=== PATIENT | female | born 2000 | race Caucasian/White ===

== ENCOUNTER 2019-10-31 11:58 | Emergency (ER) | payer SELFPAY ==
--- NOTE | 2019-10-31 12:24 | ER Document Report ---
ED Medical Screen (RME) - General Chief Complaint: OB Problem (<20wks) Stated Complaint: HEADACHE/NAUSEA/LOWER ABDOMINAL/ Time Seen by Provider: 10/31/19 12:19 Primary Care Provider: JEB MARCOS MD [Primary Care Provider] - Follow up as needed Notes: HPI: 19-year-old female presenting to the emergency department complaining of pelvic pain and low back pain with some dizziness over the last few days. P tari has not had a menstrual cycle in 4 months and has had a positive test at home no vaginal bleeding. Denies vaginal discharge. Patient states she has felt an "fluttering" sensation in the mid abdomen and is concerned she might be more than she believes. I have greeted and performed a rapid initial assessment of this patient. A comprehensive ED assessment and evaluation of the patient, analysis of test results and completion of the medical decision making process will be conducted by additional ED providers PHYSICAL EXAMINATION: GENERAL: Well-appearing, well-nourished and in no acute distress. HEAD: Atraumatic, normocephalic. EYES: sclera anicteric, conjunctiva are normal. ENT: Moist mucous membranes. NECK: Normal range of motion LUNGS: Normal work of breathing, clear to auscultation HEART: 2+ radial pulses bilaterally, regular rate and rhythm ABD: limited by positioning for exam in triage. Mild tenderness across the pelvis on palpation EXTREMITIES: no pitting or edema. No cyanosis. NEUROLOGICAL: No focal neurological deficits. Moves all extremities spontaneously and on command. PSYCH: Normal mood, normal affect. SKIN: Warm, Dry, normal turgor, no rashes or lesions noted. TRAVEL OUTSIDE OF THE [place] IN LAST 30 DAYS: No - Related Data Allergies/Adverse Reactions: No Known Allergies Allergy (Verified 05/25/14 15:56) Past Medical History Pulmonary Medical History: Reports: Hx Asthma Endocrine Medical History: Denies: Hx Diabetes Mellitus Type 1 Psychiatric Medical History: Reports: Hx Anxiety, Hx Attention Deficit Hyperactivity Disorder, Hx Bipolar Disorder, Hx Depression - Anxiety - Immunizations Immunizations up to date: Yes Hx Diphtheria, Pertussis, Tetanus Vaccination: Yes Physical Exam - Vital signs Vitals: Temp Pulse Resp BP Pulse Ox 97.8 F 74 18 130/77 H 100 10/31/19 12:06 10/31/19 12:06 10/31/19 12:06 10/31/19 12:06 10/31/19 12:06 Course - Vital Signs Vital signs: Temp Pulse Resp BP Pulse Ox 97.8 F 74 18 130/77 H 100 10/31/19 12:06 10/31/19 12:06 10/31/19 12:06 10/31/19 12:06 10/31/19 12:06 Doctor's Discharge - Discharge Referrals: JEB MARCOS MD [Primary Care Provider] - Follow up as needed
[2019-10-31 12:58] LABS: AMORPHOUS SEDIMENT,URINE TRACE /HPF; APPEARANCE,URINE CLOUDY; BILIRUBIN,URINE NEGATIVE (NEGATIVE); COLOR,URINE YELLOW; GLUCOSE, URINE NEGATIVE (NEGATIVE); KETONES,URINE NEGATIVE (NEGATIVE); LEUKOCYTE ESTERASE,URINE NEGATIVE (NEGATIVE); NITRITE,URINE NEGATIVE (NEGATIVE); PROTEIN,URINE NEGATIVE (NEGATIVE); UROBILINOGEN,URINE NEGATIVE mg/dL (<2.0)
--- NOTE | 2019-10-31 13:22 | RADIOLOGY REPORT (SQ) ---
EXAM DESCRIPTION: U/S OB TRANSVAG W/DOPPLER COMPLETED DATE/TIME: 10/31/2019 1:04 pm REASON FOR STUDY: pelvic pain COMPARISON: None. TECHNIQUE: Transabdominal static and realtime grayscale images acquired of the pelvis. Additional se lected spectral and color Doppler images recorded. All images stored on PACs. bHCG: None available CLINICAL DATES: Not available. LIMITATIONS: None. FINDINGS: FETUS: Single Living intrauterine . ULTRASOUND EGA: 14 weeks 5 days ULTRASOUND KEN: 04/25/2020 EFW: Not applicable less than 20 weeks. CRL: 7.5 cm FHR: 147 beats per minute. SURVEY: No visualized anomalies. AMNIOTIC FLUID: Adequate amount. PLACENTA: Anterior SUBCHORIONIC BLEED: No. SIZE OF BLEED: Not applicable. UTERUS: No masses. No anomalies. CERVICAL LENGTH: 3.5 cm Closed. RIGHT ADNEXA: Not imaged. LEFT ADNEXA: Not imaged. FREE FLUID: None. OTHER: No other significant finding. IMPRESSION: Living intrauterine with estimated gestational age of 14 weeks and 5 days Trimester of : Second trimester - 13 weeks 1 day to 27 weeks 6 days. TECHNICAL DOCUMENTATION: JOB ID: [id number] 2010 [employer]- All Rights Reserved rev-01/18 Reading location - IP/workstation name: [email or web address]
[2019-10-31 13:26] LABS: ABSOLUTE LYMPHOCYTES (AUTO) 2.3 10^3/uL (0.5-4.7); ABSOLUTE MONOCYTES (AUTO) 0.6 10^3/uL (0.1-1.4); ABSOLUTE NEUT (AUTO) 7.6 10^3/uL (1.7-8.2); BASOPHILS % (AUTO) 0.4 % (0-2); EOSINOPHILS % (AUTO) 0.4 % (0-6); HEMATOCRIT 33.7 % (36.0-47.0); LYMPHOCYTES % (AUTO) 21.7 % (13-45); MEAN CORPUSCULAR HGB CONC 35.5 g/dL (32.0-36.0); MEAN CORPUSCULAR VOLUME 93 fl (80-97); MONOCYTES % (AUTO) 5.5 % (3-13); PLATELET COUNT 401 10^3/uL (150-450); RED BLOOD COUNT 3.63 10^6/uL (3.72-5.28); RED CELL DISTRIBUTION WIDTH 15.2 % (11.5-14.0); TOTAL CELLS COUNTED % (AUTO) 100 %; WHITE BLOOD COUNT 10.6 10^3/uL (4.0-10.5)
[2019-10-31 13:50] LABS: ALBUMIN 3.9 g/dL (3.5-5.0); ALKALINE PHOSPHATASE 47 U/L (38-126); ANION GAP 10 (5-19); ASPARTATE AMINO TRANSFERASE 16 U/L (14-36); BILIRUBIN,DIRECT 0.2 mg/dL (0.0-0.4); BILIRUBIN,TOTAL 0.5 mg/dL (0.2-1.3); BLOOD UREA NITROGEN 8 mg/dL (7-20); CALCIUM 9.6 mg/dL (8.4-10.2); CARBON DIOXIDE 24 mmol/L (22-30); CHLORIDE 103 mmol/L (98-107); GLUCOSE 79 mg/dL (75-110); POTASSIUM 4.7 mmol/L (3.6-5.0); TOTAL PROTEIN 7.2 g/dL (6.3-8.2)
--- NOTE | 2019-10-31 15:47 | ER Document Report ---
ED General - General Chief Complaint: OB Problem (<20wks) Stated Complaint: HEADACHE/NAUSEA/LOWER ABDOMINAL/ Time Seen by Provider: 10/31/19 12:19 Primary Care Provider: JEB MARCOS MD [Primary Care Provider] - Follow up as needed Mode of Arrival: Ambulatory Information source: Patient Notes: 19-year-old female with history of anxiety bipolar depression and asthma presents to the emergency department with complaints of pelvic pain low back pain and feeling lightheaded for 1 week. She reports her last menstrual period was probably 4 months ago. She took a home test today, it was positive. Patient is G2, P1. She has not received any care. Patient reports she is sexually active with one person. Does not use any type of protection. Reports vaginal discharge but is normal for her. Denies pain with void. Denies fever or diarrhea but reports she vomits almost every day. Patient has bottled water that she has been sipping at the bedside. She reports she has had nothing to eat today. Denies abdominal pain. TRAVEL OUTSIDE OF THE [place] IN LAST 30 DAYS: No - HPI Onset: Other Onset/Duration: Persistent Quality of pain: Achy Associated symptoms: Vomiting Exacerbated by: Denies Relieved by: Denies Similar symptoms previously: No Recently seen / treated by doctor: No - Related Data Allergies/Adverse Reactions: No Known Allergies Allergy (Verified 05/25/14 15:56) Past Medical History - General Information source: Patient Last Menstrual Period: 4 months ago - Social History Smoking Status: Current Every Day Smoker Cigarette use (# per day): Yes Frequency of alcohol use: Occasional Drug Abuse: None Lives with: Family Family History: Reviewed & Not Pertinent Patient has suicidal ideation: No Patient has homicidal ideation: No Pulmonary Medical History: Reports: Hx Asthma Endocrine Medical History: Denies: Hx Diabetes Mellitus Type 1 Psychiatric Medical History: Reports: Hx Anxiety, Hx Attention Deficit Hyperactivity Disorder, Hx Bipolar Disorder, Hx Depression - Anxiety Past Surgical History: Reports: Hx Section - Immunizations Immunizations up to date: Yes Hx Diphtheria, Pertussis, Tetanus Vaccination: Yes Review of Systems - Review of Systems Notes: Review HPI for review of systems., All other systems negative Physical Exam - Vital signs Vitals: Temp Pulse Resp BP Pulse Ox 97.8 F 74 18 130/77 H 100 10/31/19 12:06 10/31/19 12:06 10/31/19 12:06 10/31/19 12:06 10/31/19 12:06 - Notes Notes: PHYSICAL EXAMINATION: GENERAL: Well-appearing and in no acute distress HEAD: Atraumatic, normocephalic. EYES: Pupils equal round, extraocular movements intact, sclera anicteric, conjunctiva are normal. ENT: nares patent, Moist mucous membranes. NECK: Normal range of motion, supple without lymphadenopathy LUNGS: CTAB and equal. No wheezes rales or rhonchi. HEART: Regular rate and rhythm without murmurs ABDOMEN: Soft, no tenderness. No guarding, no rebound BACK: Denies pain with palpation, good distal movement and sensation EXTREMITIES: Normal range of motion, no pitting edema. NEUROLOGICAL: Cranial nerves grossly intact. Normal sensory/motor exams. PSYCH: Normal mood, normal affect. SKIN: Warm, Dry, normal turgor, no rashes or lesions noted - Genitourinary External exam: Normal Speculum exam: Normal Vaginal bleeding: None Bimanuel exam: Normal Course - Re-evaluation Re-evalutation: 10/31/19 16:56 19-year-old female presents with positive home test. Reports last menstrual period was maybe 4 months ago. Patient reports some pelvic pain low back pain dizziness. Also complains she is vomiting on a daily basis. Denies fever or diarrhea. Denies pain with void. Patient reports there is no way she has an STD because she is only been with 1 partner. Pelvic completed STD cultures obtained. Patient was instructed on ultrasound. She reports that during her last delivery she went into cardiac arrest twice and had to do an emergency . She is not sure why. She also reports she has a history of severe anemia. Labs unremarkable UA negative, ultrasound shows 14 weeks 5 days due date of 04/25/2020 with heart rate of 147 beats. Patient was instructed on this. Wet mount negative STDs negative. Patient was instructed results. Instructed to follow-up with health department for care. She verbalized understanding to all information. Transvaginal US 10/31/19 12:22 IMPRESSION: Living intrauterine with estimated gestational age of 14 weeks and 5 days Trimester of : Second trimester - 13 weeks 1 day to 27 weeks 6 days. Laboratory 10/31/19 10/31/19 10/31/19 12:41 13:13 13:13 WBC 10.6 H RBC 3.63 L Hgb 12.0 Hct 33.7 L MCV 93 MCH 33.0 MCHC 35.5 RDW 15.2 H Plt Count 401 Lymph % (Auto) 21.7 Drew % (Auto) 5.5 Eos % (Auto) 0.4 Baso % (Auto) 0.4 Absolute Neuts (auto) 7.6 Absolute Lymphs (auto) 2.3 Absolute Monos (auto) 0.6 Absolute Eos (auto) 0.0 Absolute Basos (auto) 0.0 Seg Neutrophils % 72.0 Sodium 137.2 Potassium 4.7 Chloride 103 Carbon Dioxide 24 Anion Gap 10 BUN 8 Creatinine 0.36 L Est GFR ( Amer) > 60 Est GFR (MDRD) Non-Af > 60 Glucose 79 Calcium 9.6 Total Bilirubin 0.5 Direct Bilirubin 0.2 Neonat Total Bilirubin Not Reportable Neonat Direct Bilirubin Not Reportable Neonat Indirect Bili Not Reportable AST 16 ALT 10 Alkaline Phosphatase 47 Total Protein 7.2 Albumin 3.9 Beta HCG, Quant 18683.00 H Total Beta HCG POSITIVE Urine Color YELLOW Urine Appearance CLOUDY Urine pH 7.0 Ur Specific [place] 1.020 Urine Protein NEGATIVE Urine Glucose (UA) NEGATIVE Urine Ketones NEGATIVE Urine Blood NEGATIVE Urine Nitrite NEGATIVE Urine Bilirubin NEGATIVE Urine Urobilinogen NEGATIVE Ur Leukocyte Esterase NEGATIVE Urine WBC (Auto) 2 Urine Bacteria (Auto) TRACE Squamous Epi Cells Auto 6 Amorphous Sediment Auto TRACE Urine Mucus (Auto) MANY Urine Ascorbic Acid 20 H Blood Type Rhogam Indicated 10/31/19 15:44 WBC RBC Hgb Hct MCV MCH MCHC RDW Plt Count Lymph % (Auto) Drew % (Auto) Eos % (Auto) Baso % (Auto) Absolute Neuts (auto) Absolute Lymphs (auto) Absolute Monos (auto) Absolute Eos (auto) Absolute Basos (auto) Seg Neutrophils % Sodium Potassium Chloride Carbon Dioxide Anion Gap BUN Creatinine Est GFR ( Amer) Est GFR (MDRD) Non-Af Glucose Calcium Total Bilirubin Direct Bilirubin Neonat Total Bilirubin Neonat Direct Bilirubin Neonat Indirect Bili AST ALT Alkaline Phosphatase Total Protein Albumin Beta HCG, Quant Total Beta HCG Urine Color Urine Appearance Urine pH Ur Specific [place] Urine Protein Urine Glucose (UA) Urine Ketones Urine Blood Urine Nitrite Urine Bilirubin Urine Urobilinogen Ur Leukocyte Esterase Urine WBC (Auto) Urine Bacteria (Auto) Squamous Epi Cells Auto Amorphous Sediment Auto Urine Mucus (Auto) Urine Ascorbic Acid Blood Type A POSITIVE Rhogam Indicated RHOGAM NOT INDICATED 10/31/19 19:05 - Vital Signs Vital signs: Temp Pulse Resp BP Pulse Ox 98.4 F 88 17 116/64 100 10/31/19 17:00 10/31/19 17:00 10/31/19 17:00 10/31/19 17:00 10/31/19 17:00 - Laboratory Result Diagrams: 10/31/19 13:13 10/31/19 13:13 Laboratory results interpreted by me: 10/31/19 10/31/19 10/31/19 12:41 13:13 13:13 WBC 10.6 H RBC 3.63 L Hct 33.7 L RDW 15.2 H Creatinine 0.36 L Beta HCG, Quant 52784.00 H Urine Ascorbic Acid 20 H - Diagnostic Test Radiology reviewed: Reports reviewed Procedures - Pelvic Exam Pelvic exam Time completed: 16:55 Cultures obtained: Yes Wet prep obtained: Yes Herpes culture obtained: No POC sent to lab: No Foreign body removed: No Bimanual exam performed: Yes Witnessed by: Earnestine NICK Discharge - Discharge Clinical Impression: , Vomiting Condition: Stable Disposition: HOME, SELF-CARE Instructions: Antinausea Medication ([facility]), [facility] Department, ([facility]) Additional Instructions: *You have been evaluated for pelvic pain, vomiting, *The Ultrasound showed you are 14 weeks 5 days . With a heart rate of 147. Your estimated due date is April 25, 2020 *Your STD cultures are still pending. Should you need any type of treatment you will be contacted within the next 4 to 5 days. *Take medication as prescribed for nausea *Follow up with the health department within 1 week for full evaluation, care, and referral to [facility] *Return to ED for worsening condition, changes, needs, severe abdominal pain, vaginal bleeding, concerns Monitor your blood pressure. Your blood pressure was elevated today. This may be because you were anxious, in pain or because you need medication. It is important to follow up with your primary care provider for full evaluation. Prescriptions: Metoclopramide HCl [Reglan 10 mg Tablet] 1 tab PO ASDIR PRN #15 tablet PRN Reason: Forms: Elevated Blood Pressure Referrals: MARCOS,JEB, MD [Primary Care Provider] - Follow up as needed
[2019-10-31] MEDS ORDERED: METOCLOPRAMIDE HCL 10 MG TABLET PO ONE (16:50)
[2019-10-31 17:07] LABS: BACTERIA (WET MOUNT) 3+ BACTERIA SEEN; T.VAGINALIS (WET MOUNT) NO TRICHOMONAS SEEN; WBCS (WET MOUNT) 1+ WBCS SEEN; YEAST (WET MOUNT) NO YEAST SEEN
[2019-10-31 17:54] VITALS: BP 116/64
[2019-10-31 18:39] LABS: CHLAM PCR NOT DETECTED (NOT DETECT)
== END 2019-10-31 17:55 | disposition home or self-care (01) ==
LOC: ER 11:58
DX: O21.9 Vomiting of pregnancy, unspecified (principal); M54.5 Low back pain; R51 Headache; R10.30 Lower abdominal pain, unspecified; O99.332 Smoking (tobacco) complicating pregnancy, second trimester; Z3A.14 14 weeks gestation of pregnancy
CPT/HCPCS: 36415; 76817; 80053; 81001; 84702; 85025; 86900; 86901; 87070; 87205; 87210; 87491; 87591; 93976; 99284

== ENCOUNTER 2019-11-12 09:35 | Emergency (ER) | payer SELFPAY ==
[2019-11-12] MEDS ORDERED: DIPH/PERTUSS(ACELL)/TETANUS VAC/PF 0.5 ML SYR (>=10YO) IM ONE (09:58)
--- NOTE | 2019-11-12 10:01 | ER Document Report ---
ED Medical Screen (RME) - General Chief Complaint: Foot Injury Stated Complaint: RIGHT FOOT INJURY Time Seen by Provider: 11/12/19 09:56 Primary Care Provider: GABINO ZURITA CNM [Primary Care Provider] - Follow up as needed Mode of Arrival: Wheelchair Information source: Patient Notes: 19-year-old female approximately 4 months presents emergency department with approximately 3 to 4 cm with laceration to the medial plantar of her right foot. Reports she was walking barefoot outside and stepped on a piece of metal. She reports she had to pull it out of her foot. Unsure of last tetanus. Wound bleeding covered with dressing. I have greeted and performed a rapid initial assessment of this patient. A comprehensive ED assessment and evaluation of the patient, analysis of test results and completion of the medical decision making process will be conducted by additional ED providers. TRAVEL OUTSIDE OF THE [place] IN LAST 30 DAYS: No - Related Data Allergies/Adverse Reactions: No Known Allergies Allergy (Verified 11/12/19 09:45) Past Medical History Pulmonary Medical History: Reports: Hx Asthma Endocrine Medical History: Denies: Hx Diabetes Mellitus Type 1 Psychiatric Medical History: Reports: Hx Anxiety, Hx Attention Deficit Hyperactivity Disorder, Hx Bipolar Disorder, Hx Depression - Anxiety Past Surgical History: Reports: Hx Section - Immunizations Immunizations up to date: Yes Hx Diphtheria, Pertussis, Tetanus Vaccination: Yes Physical Exam - Vital signs Vitals: Temp Pulse Resp BP Pulse Ox 98.8 F 79 16 118/56 L 99 11/12/19 09:41 11/12/19 09:41 11/12/19 09:41 11/12/19 09:41 11/12/19 09:41 Course - Vital Signs Vital signs: Temp Pulse Resp BP Pulse Ox 98.8 F 79 16 118/56 L 99 11/12/19 09:41 11/12/19 09:41 11/12/19 09:41 11/12/19 09:41 11/12/19 09:41 Doctor's Discharge - Discharge Referrals: GABINO ZURITA CNM [Primary Care Provider] - Follow up as needed
--- NOTE | 2019-11-12 10:33 | RADIOLOGY REPORT (SQ) ---
EXAM DESCRIPTION: FOOT RIGHT COMPLETE COMPLETED DATE/TIME: 11/12/2019 10:23 am REASON FOR STUDY: laceration, stepped on metal COMPARISON: None. NUMBER OF VIEWS: Three views. TECHNIQUE: AP, lateral and oblique radiographic images acquired of the right foot. LIMITATIONS: None. FINDINGS: MINERALIZATION: Normal. BONES: No acute fracture or dislocation. No worrisome bone lesions. JOINTS: No effusions. SOFT TISSUES: No soft tissue swelling. No foreign body. OTHER: No other significant finding. IMPRESSION: NEGATIVE STUDY OF THE RIGHT FOOT. NO RADIOGRAPHIC EVIDENCE OF ACUTE INJURY. TECHNICAL DOCUMENTATION: JOB ID: [id number] 2010 [employer]- All Rights Reserved Reading location - IP/workstation name: [email or web address]
[2019-11-12] MEDS ORDERED: LIDOCAINE 1%/EPINEPHRINE INJ 20 ML VIAL INJ ONE (10:52)
--- NOTE | 2019-11-12 11:01 | ER Document Report ---
ED General - General Chief Complaint: Foot Injury Stated Complaint: RIGHT FOOT INJURY Time Seen by Provider: 11/12/19 09:56 Primary Care Provider: GABINO ZURITA CNM [Primary Care Provider] - Follow up as needed Mode of Arrival: Wheelchair TRAVEL OUTSIDE OF THE [place] IN LAST 30 DAYS: No - HPI Notes: Patient is a 19-year-old female who presents to the emergency department for evaluation after sustaining a laceration to her right foot. She was getting up in her house, believed she stepped on a piece of metal. She states she had pulled out of her foot. She is unsure as to her last tetanus shot. She notes she is 4 months . - Related Data Allergies/Adverse Reactions: No Known Allergies Allergy (Verified 11/12/19 09:45) Home Medications: vitamin Past Medical History - General Information source: Patient - Social History Smoking Status: Current Some Day Smoker Chew tobacco use (# tins/day): No Frequency of alcohol use: None Drug Abuse: None Family History: Reviewed & Not Pertinent Patient has suicidal ideation: No Patient has homicidal ideation: No Pulmonary Medical History: Reports: Hx Asthma Endocrine Medical History: Denies: Hx Diabetes Mellitus Type 1 Psychiatric Medical History: Reports: Hx Anxiety, Hx Attention Deficit Hyperactivity Disorder, Hx Bipolar Disorder, Hx Depression - Anxiety Past Surgical History: Reports: Hx Section - Immunizations Immunizations up to date: Yes Hx Diphtheria, Pertussis, Tetanus Vaccination: Yes Review of Systems - Review of Systems Skin: See HPI -: Yes All other systems reviewed and negative Physical Exam - Vital signs Vitals: Temp Pulse Resp BP Pulse Ox 98.8 F 79 16 118/56 L 99 11/12/19 09:41 11/12/19 09:41 11/12/19 09:41 11/12/19 09:41 11/12/19 09:41 - Notes Notes: This is a 19-year-old female who appears her stated age in no acute distress. Head is normocephalic and atraumatic, pupils are equal round, reactive to light. Oral mucosa is moist. Heart is regular rate and rhythm, lungs are clear to all station bilaterally. Examination of the right foot yields a 4 cm linear laceration over the medial aspect of the foot, plantar aspect. No foreign body. It does go into the subcutaneous tissue, but I do not appreciate any muscle involvement. Full range of motion of the toes, neurovascularly intact distally. Course - Re-evaluation Re-evalutation: 11/12/19 11:04 Patient presents emergency department for evaluation. She sustained a laceration which will require suture closure. Wound care set up ordered. 11/12/19 11:31 Patient tolerated wound closure well. Please see procedure note. She is given wound care instructions, instructions to have sutures removed in 7 to 10 days. She is given crutches as per her request to avoid weightbearing on this laceration. She is given a work excuse. She is to return to the ED with worsening. - Vital Signs Vital signs: Temp Pulse Resp BP Pulse Ox 98.3 F 78 16 116/66 100 11/12/19 11:48 11/12/19 11:48 11/12/19 11:48 11/12/19 11:48 11/12/19 11:48 - Diagnostic Test Radiology reviewed: Image reviewed, Reports reviewed Radiology results interpreted by me: 11/12/19 11:04 Foot X-Ray 11/12/19 09:58 IMPRESSION: NEGATIVE STUDY OF THE RIGHT FOOT. NO RADIOGRAPHIC EVIDENCE OF ACUTE INJURY. Procedures - Laceration/Wound Repair Right Foot Time completed: 11:20 Wound length (cm): 4 Wound's Depth, Shape: Superficial, Linear Laceration pre-procedure: Sterile PPE donned Anesthetic type: 1% Lidocaine w/epi Volume Anesthetic (mLs): 5 Wound explored: Clean, No foreign body removed Wound Repaired With: Sutures Suture Size/Type: 4:0, Prolene Number of Sutures: 7 Layer Closure?: No Post-procedure wound care: Sterile dressing applied Post-procedure NV exam normal: Yes Complications: No Discharge - Discharge Clinical Impression: Laceration of right foot Qualifiers: Encounter type: initial encounter Qualified Code(s): S91.311A - Laceration without foreign body, right foot, initial encounter Condition: Stable Disposition: HOME, SELF-CARE Instructions: Antibiotic Ointment Protection ([facility]), Laceration Care ([facility]), Soap Cleansing ([facility]), Tetanus Immunization Given ([facility]) Additional Instructions: Keep wound clean with soap and water, antibiotic ointment and dressing to protect. Avoid submerging in water. Use crutches as needed for comfort to aid with ambulation. Have sutures removed in 7 to 10 days. If you develop increased redness, drainage, fevers, vomiting, red streaks, or any other new or concerning symptoms, please return immediately to the emergency department for evaluation. Forms: Return to Work Referrals: GABINO ZURITA CNM [Primary Care Provider] - Follow up as needed
[2019-11-12 11:49] VITALS: BP 116/66
== END 2019-11-12 11:48 | disposition home or self-care (01) ==
LOC: ER 09:35
DX: S91.311A Laceration without foreign body, right foot, initial encounter (principal); W26.9XXA Contact with unspecified sharp object(s), initial encounter; F17.200 Nicotine dependence, unspecified, uncomplicated; Z23 Encounter for immunization
CPT/HCPCS: 99282; 90471; 73630; 90715; 12002; J3490

== ENCOUNTER 2019-11-20 13:23 | Emergency (ER) | payer MEDICAID ==
[2019-11-20 13:26] VITALS: BP 119/64
--- NOTE | 2019-11-20 13:34 | ER Document Report ---
HPI - HPI Time Seen by Provider: 11/20/19 13:26 Notes: 19-year-old female who is 4 months presents emergency room for wound check to a laceration to the medial aspect of her right foot after she was walking barefoot outside and stepped on metal, she received 7 simple sutures on November 11. Denies any fevers or chills, is not using crutches to ambulate. Has not done any warm soaks or elevation. No open wounds or drainage. Denies any fevers or chills. Denies any numbness or tingling to bilateral lower extremities. - REPRODUCTIVE Reproductive: REPORTS: : Past Medical History - General Information source: Patient - Social History Smoking Status: Unknown if Ever Smoked Family History: Reviewed & Not Pertinent Pulmonary Medical History: Reports: Hx Asthma Endocrine Medical History: Denies: Hx Diabetes Mellitus Type 1 Psychiatric Medical History: Reports: Hx Anxiety, Hx Attention Deficit Hyperactivity Disorder, Hx Bipolar Disorder, Hx Depression - Anxiety Past Surgical History: Reports: Hx Section - Immunizations Immunizations up to date: Yes Hx Diphtheria, Pertussis, Tetanus Vaccination: Yes Vertical Provider Document - CONSTITUTIONAL Agree With Documented VS: Yes Exam Limitations: No Limitations General Appearance: WD/WN Notes: PHYSICAL EXAMINATION: reviewed vital signs by RN GENERAL: Well-appearing, well-nourished and in no acute distress. HEAD: Atraumatic, normocephalic. EYES: Pupils equal round and reactive to light, extraocular movements intact, conjunctiva are normal. ENT: Nares patent, oropharynx clear without exudates. Moist mucous membranes. NECK: Normal range of motion, supple without lymphadenopathy LUNGS: Breath sounds clear to auscultation bilaterally and equal. No wheezes rales or rhonchi. HEART: Regular rate and rhythm without murmurs ABDOMEN: Soft, nontender, nondistended abdomen. No guarding, no rebound. No masses appreciated. Female : deferred Musculoskeletal: Normal range of motion, no pitting or edema. No cyanosis. NEUROLOGICAL: Cranial nerves grossly intact. Normal speech, normal gait. Normal sensory, motor exams PSYCH: Normal mood, normal affect. SKIN: Warm, Dry, normal turgor, no rashes or lesions noted. Centimeter linear laceration that is healing with 7 simple sutures to medial plantar aspect of right foot. Distal pulses +2, cap refill less than 3 seconds. Full motor and sensory function of bilateral lower extremities equally. Not approximation of wound edges to distal aspect of laceration - INFECTION CONTROL TRAVEL OUTSIDE OF THE [place] IN LAST 30 DAYS: No Course - Re-evaluation Re-evalutation: 11/20/19 13:33 Afebrile vital stable no distress. Discussed with patient that she does need a couple more days of stitches stay in place to help with wound approximation since it it is in aspect of her foot in which she does have flexion and extension. Advised her to wash with soap and water twice a day, monitor for any signs symptoms of redness such as redness, swelling, drainage. Elevate above level of heart. If any symptoms become worse return to the emergency room. Likely her sutures will be able to be taken out and 24 hours. Did advise her to use crutches for ambulation. After performing a Medical Screening Examination, I estimate there is LOW risk for OPEN FRACTURE, COMPARTMENT SYNDROME, TENDON RUPTURE, ACUTE NEUROVASCULAR INJURY, or RETAINED FOREIGN BODY, thus I consider the discharge disposition reasonable. Also, there is no evidence or peritonitis, sepsis, or toxicity. I have reevaluated this patient multiple times and no significant life threatening changes are noted. The patient and I have discussed the diagnosis and risks, and we agree with discharging home with close follow-up with the understanding that symptoms and presentations can change. We also discussed returning to the Emergency Department immediately if new or worsening symptoms occur. We have discussed the symptoms which are most concerning (e.g., changing or worsening pain, fever, numbness, weakness, cool or painful digits) that necessitate immediate return. - Vital Signs Vital signs: Temp Pulse Resp BP Pulse Ox 98.1 F 87 18 119/64 98 11/20/19 13:26 11/20/19 13:26 11/20/19 13:26 11/20/19 13:26 11/20/19 13:26 Discharge - Discharge Clinical Impression: Suture check Condition: Stable Disposition: HOME, SELF-CARE Additional Instructions: Please follow-up in 2 days for reevaluation for suture removal. Please wash with soap and water at least twice a day, monitor for any signs symptoms of infection such as redness, swelling, drainage. Please keep elevated when you are not ambulating. Alternate Tylenol and ibuprofen for pain control. Return immediately for any new or worsening symptoms. Follow up with primary care provider, call tomorrow to make followup appointment. Referrals: GABINO ZURITA CNM [Primary Care Provider] - Follow up as needed
== END 2019-11-20 13:35 | disposition home or self-care (01) ==
LOC: ER 13:23
DX: S91.311D Laceration without foreign body, right foot, subsequent encounter (principal); W45.8XXD Other foreign body or object entering through skin, subsequent encounter; J45.909 Unspecified asthma, uncomplicated
CPT/HCPCS: 99281

== ENCOUNTER 2019-12-22 14:31 | Outpatient (CLI) | payer MEDICAID ==
[2019-12-22 15:23] LABS: AMORPHOUS SEDIMENT,URINE 1+ /HPF; APPEARANCE,URINE TURBID; BILIRUBIN,URINE NEGATIVE (NEGATIVE); COLOR,URINE YELLOW; GLUCOSE, URINE NEGATIVE (NEGATIVE); KETONES,URINE NEGATIVE (NEGATIVE); LEUKOCYTE ESTERASE,URINE TRACE (NEGATIVE); NITRITE,URINE NEGATIVE (NEGATIVE); PROTEIN,URINE NEGATIVE (NEGATIVE); URINE SPECIFIC GRAVITY 1.017; UROBILINOGEN,URINE NEGATIVE mg/dL (<2.0)
[2019-12-22 15:48] LABS: URINE AMPHETAMINES SCREEN NEGATIVE; URINE BARBITURATES SCREEN NEGATIVE; URINE BENZODIAZEPINES SCREEN NEGATIVE; URINE COCAINE SCREEN NEGATIVE; URINE MARIJUANA (THC) SCREEN NEGATIVE; URINE METHADONE SCREEN NEGATIVE; URINE PHENCYCLIDINE SCREEN NEGATIVE
== END 2019-12-22 15:12 | disposition home or self-care (01) ==
LOC: LC 14:31
PROVIDERS: ATTEND Obstetrics & Gynecology
DX: O9A.212 Injury, poisoning and certain other consequences of external causes complicating pregnancy, second trimester (principal); O26.892 Other specified pregnancy related conditions, second trimester; R10.9 Unspecified abdominal pain; Z3A.22 22 weeks gestation of pregnancy
CPT/HCPCS: 80307; 81001

== ENCOUNTER 2020-03-21 11:35 | Outpatient (CLI) | payer MEDICAID ==
[2020-03-21 12:29] LABS: AMORPHOUS SEDIMENT,URINE TRACE /HPF; APPEARANCE,URINE CLOUDY; BILIRUBIN,URINE NEGATIVE (NEGATIVE); COLOR,URINE YELLOW; GLUCOSE, URINE NEGATIVE (NEGATIVE); KETONES,URINE NEGATIVE (NEGATIVE); LEUKOCYTE ESTERASE,URINE TRACE (NEGATIVE); NITRITE,URINE NEGATIVE (NEGATIVE); PROTEIN,URINE NEGATIVE (NEGATIVE); URINE SPECIFIC GRAVITY 1.016; UROBILINOGEN,URINE NEGATIVE mg/dL (<2.0)
[2020-03-21 12:31] LABS: BACTERIA (WET MOUNT) 4+ BACTERIA SEEN; EPITHELIALS (WET MOUNT) 3+ EPITHELIALS SEEN; T.VAGINALIS (WET MOUNT) NO TRICHOMONAS SEEN; WBCS (WET MOUNT) 2+ WBCS SEEN; YEAST (WET MOUNT) YEAST SEEN
[2020-03-21] MEDS ORDERED: FLUCONAZOLE 100 MG TABLET PO ONE (12:37)
[2020-03-21] MEDS ORDERED: FLUCONAZOLE 100 MG TABLET ONE (13:05)
[2020-03-21 13:11] LABS: URINE AMPHETAMINES SCREEN NEGATIVE; URINE BARBITURATES SCREEN NEGATIVE; URINE BENZODIAZEPINES SCREEN NEGATIVE; URINE COCAINE SCREEN NEGATIVE; URINE MARIJUANA (THC) SCREEN NEGATIVE; URINE METHADONE SCREEN NEGATIVE; URINE PHENCYCLIDINE SCREEN NEGATIVE
[2020-03-21 13:52] LABS: CHLAM PCR NOT DETECTED (NOT DETECT)
== END 2020-03-21 13:22 | disposition home or self-care (01) ==
LOC: LC 11:35
PROVIDERS: ATTEND Obstetrics & Gynecology
DX: O98.813 Other maternal infectious and parasitic diseases complicating pregnancy, third trimester (principal); B37.9 Candidiasis, unspecified; Z3A.33 33 weeks gestation of pregnancy
CPT/HCPCS: 59025; 87210; 81001; 80307; 87491; 87591; 84112; J3490

== ENCOUNTER 2020-04-11 19:10 | Outpatient (CLI) | payer MEDICAID ==
[2020-04-11 20:44] LABS: APPEARANCE,URINE CLOUDY; BILIRUBIN,URINE NEGATIVE (NEGATIVE); CALCIUM OXALATE CRYSTALS,URINE MANY /HPF; COLOR,URINE YELLOW; GLUCOSE, URINE NEGATIVE (NEGATIVE); KETONES,URINE NEGATIVE (NEGATIVE); LEUKOCYTE ESTERASE,URINE SMALL (NEGATIVE); NITRITE,URINE NEGATIVE (NEGATIVE); PROTEIN,URINE NEGATIVE (NEGATIVE); URINE SPECIFIC GRAVITY 1.023
[2020-04-11 20:45] LABS: ABSOLUTE EOSINOPHILS # (AUTO) 0.1 10^3/uL (0.0-0.6); ABSOLUTE LYMPHOCYTES (AUTO) 2.7 10^3/uL (0.5-4.7); ABSOLUTE MONOCYTES (AUTO) 0.8 10^3/uL (0.1-1.4); ABSOLUTE NEUT (AUTO) 8.1 10^3/uL (1.7-8.2); BASOPHILS % (AUTO) 0.3 % (0-2); EOSINOPHILS % (AUTO) 0.9 % (0-6); HEMATOCRIT 28.1 % (36.0-47.0); HEMOGLOBIN 9.8 g/dL (12.0-15.5); LYMPHOCYTES % (AUTO) 23.1 % (13-45); MEAN CORPUSCULAR HEMOGLOBIN 33.4 pg (27.0-33.4); MEAN CORPUSCULAR VOLUME 95 fl (80-97); MONOCYTES % (AUTO) 6.7 % (3-13); PLATELET COUNT 332 10^3/uL (150-450); RED BLOOD COUNT 2.94 10^6/uL (3.72-5.28); RED CELL DISTRIBUTION WIDTH 13.9 % (11.5-14.0); TOTAL CELLS COUNTED % (AUTO) 100 %; WHITE BLOOD COUNT 11.7 10^3/uL (4.0-10.5)
[2020-04-11 21:02] LABS: URINE AMPHETAMINES SCREEN NEGATIVE; URINE BARBITURATES SCREEN NEGATIVE; URINE BENZODIAZEPINES SCREEN NEGATIVE; URINE COCAINE SCREEN NEGATIVE; URINE MARIJUANA (THC) SCREEN NEGATIVE; URINE METHADONE SCREEN NEGATIVE; URINE PHENCYCLIDINE SCREEN NEGATIVE
[2020-04-11] MEDS ORDERED: HYDROXYZINE PAMOATE 50 MG CAPSULE ONE (21:40)
[2020-04-11] MEDS ORDERED: HYDROXYZINE PAMOATE 50 MG CAPSULE PO ONE (21:43)
--- NOTE | 2020-04-11 22:25 | Non Stress Test Report ---
Non Stress Test Datetime Report Generated by CPN: 04/11/2020 22:25 DEMOGRAPHIC EGA NST: 36.6 EGA NST: 33.6 INDICATION Indication for Study (NST) Other: gestational at > 32 weeks Indication for Study (NST) Other: possible SROM VITAL SIGNS Temperature - NST: 98.3 Pulse - NST: 77 RESP - NST: 16 NBPSYS NST: 113 NBPDIA NST: 54 MONITORING Monitor Explained: Monitor Explained; Test Explained; Patient Verbalized Understanding Monitor Explained: Monitor Explained; Test Explained; Patient Verbalized Understanding Time on Monitor: 04/11/2020 19:38 Time on Monitor: 03/21/2020 12:00 Time off Monitor: 04/11/2020 21:47 Time off Monitor: 03/21/2020 12:45 NST Duration: 129 NST Duration: 45 NST INTERVENTIONS NST Interventions: PO Hydration; IV Fluids; Reposition Patient NST Interventions: None Physician Notified NST: dr echeverria Physician Notified NST: Dr Drake BABY A: [id number] BABY A Movement : Present Movement : Present Contraction Frequency : irregular Contraction Frequency : none FHR Baseline : 135 FHR Baseline : 135 Accelerations : 15X15 Accelerations : 15X15 Decelerations : None Decelerations : None Variability : Moderate 6-25bpm Variability : Moderate 6-25bpm NST Review: Meets Criteria for Reactive NST NST Review: Meets Criteria for Reactive NST NST Review and Verified By : Ap Walker RN NST Results: Reactive NST Results: Reactive NST REPORT Report Trigger: Send Report
== END 2020-04-11 22:12 | disposition home or self-care (01) ==
LOC: LC 19:10
PROVIDERS: ATTEND Obstetrics & Gynecology
DX: O26.893 Other specified pregnancy related conditions, third trimester (principal); E86.0 Dehydration; Z3A.36 36 weeks gestation of pregnancy
CPT/HCPCS: 59025; 86900; 86901; 36415; 86850; 85025; 86592; 81001; 80307; 84112; J3490

== ENCOUNTER 2020-04-16 17:30 | Inpatient (IN) | payer MEDICAID ==
[2020-04-16] MEDS ORDERED: HYDROXYZINE PAMOATE 50 MG CAPSULE PO ONE (19:00)
--- NOTE | 2020-04-16 19:15 | Admission Physical ---
Datetime Report Generated by CPN: 04/16/2020 19:14 CURRENT ADMISSION Chief Complaint: Uterine Contractions Indication for Induction: Not Applicable Admit Impression : Active Labor; Repeat Section ALLERGIES Medication Allergies: No Medication Allergies: No Known Allergies (04/16/2020) Latex: No Latex Allergies Food Allergies: No Environmental Allergies: No OBSTETRICAL HISTORY EDC: 05/03/2020 00:00 : 2 Para: 1 Cesareans: 1 Gestational Diabetes: No Rh Sensitization: No Incompetent Cervix: No ALISIA: No Infertility: No ART Treatment: No Uterine Anomaly: No IUGR: No Hx Previous C/S: No Macrosomia: No Hx Loss/Stillborn: No PIH: No Hx : No Placenta Previa/Abruption: No Depression/PP Depression: Yes PTL/PROM: No Post Hemorrhage: No Current Procedures: Ultrasound Obstetrical History Comments: 2017, , term G2- current SEE RECORDS Alcohol: No Marijuana : No Cocaine: No Other Illicit Drugs: No Cigarettes: Current Some Day Smoker. [id number] Cigarette Frequency: < 5 per day Advised to Stop: Yes MEDICAL HISTORY Diabetes: No Blood Transfusion: No Pulmonary Disease (Asthma, TB): Yes Breast Disease: No Hypertension: No Gastroenterology Professor Surgery: No Heart Disease: No Hosp/Surgery: Yes Autoimmune Disorder: No Anesthetic Complications: No Kidney Disease: Yes Abnormal Pap Smear: No Neuro/Epilepsy: No Psychiatric Disorders: Yes Other Medical Diseases: No Hepatitis/Liver Disease: No Significant Family History: No Varicosities/Phlebitis: No Trauma/Violence : No Thyroid Dysfunction: No Medical History Comments: recurrent UTIs since childhood, anxiety/depression, ADHD, bipolar, PPD, autism, asthma with albuterol inhaler, INFECTIOUS HISTORY Gonorrhea: No Genital Herpes: No Chlamydia: No Tuberculosis: No Syphilis: No Hepatitis: No HIV/AIDS Exposure: No Rash or Viral Illness: No HPV: No PHYSICAL EXAM General: Normal HEENT: Deferred Neurologic: Normal Thyroid: Deferred Heart: Normal Lungs: Normal Breast: Deferred Back: Deferred Abdomen: Normal Genitourinary Exam: Normal Extremities: Normal DTRs: Deferred Pelvic Type: Adequate Physical Exam Comments: cervix exam per RN, cervical change from 2cm to 4cm Vital Signs: Reviewed VAGINAL EXAM Dilatation: 4 Effacement: 50 Station: -3 FETUS A EGA: 37.4 Monitoring: External US Variability: Moderate 6-25bpm Accelerations: 15X15 Decelerations: None FHR Category: Category I Admit Comment: Pt has hx of CS for FTP, wants to have repeat CS reports contractions started around 4:30-5pm LGSIL Depression, anxiety on Latuda/Buspar, hx of hospitalization Asthma, uses inhaler GBS collected 04/13/20-pending at [facility] Hx anorexia/bullemia PLANS FOR LABOR AND DELIVERY Labor and Delivery: None Feeding Preference: Both Benefit of Breast Feed Discussed: Yes Circumcision: Yes INFORMED CONSENT Assignment: Anita Lockhart MD Signature: with User ID: Brad : with User ID: Brad
[2020-04-16] MEDS ORDERED: CITRIC ACID/SODIUM CITRATE ORAL SOLN 15 ML UDCUP ONE (19:27)
[2020-04-16] MEDS ORDERED: CEFAZOLIN 2 GM/D5W RTU 2 GM/50 ML RTUPB IV ONE ×2 (19:27→19:50)
[2020-04-16] MEDS ORDERED: RINGERS SOLUTION,LACTATED 1,000 ML IV ONE (19:50)
[2020-04-16] MEDS ORDERED: ALBUTEROL SULFATE 0.042% NEB (1.25 MG/3 ML) AMPUL NEB ONE (19:51)
[2020-04-16] MEDS ORDERED: ALBUTEROL SULFATE 0.083% NEB 2.5 MG/3 ML AMPUL NEB ONE ×2 (20:05→20:15)
[2020-04-16 20:37] LABS: ABSOLUTE EOSINOPHILS # (AUTO) 0.1 10^3/uL (0.0-0.6); ABSOLUTE LYMPHOCYTES (AUTO) 2.6 10^3/uL (0.5-4.7); ABSOLUTE MONOCYTES (AUTO) 0.8 10^3/uL (0.1-1.4); ABSOLUTE NEUT (AUTO) 7.9 10^3/uL (1.7-8.2); BASOPHILS % (AUTO) 0.2 % (0-2); EOSINOPHILS % (AUTO) 0.5 % (0-6); HEMATOCRIT 27.9 % (36.0-47.0); HEMOGLOBIN 9.8 g/dL (12.0-15.5); LYMPHOCYTES % (AUTO) 22.9 % (13-45); MEAN CORPUSCULAR HEMOGLOBIN 33.2 pg (27.0-33.4); MEAN CORPUSCULAR VOLUME 95 fl (80-97); MONOCYTES % (AUTO) 7.3 % (3-13); PLATELET COUNT 344 10^3/uL (150-450); RED BLOOD COUNT 2.95 10^6/uL (3.72-5.28); RED CELL DISTRIBUTION WIDTH 14.4 % (11.5-14.0); SEGMENTED NEUTROPHILS % (AUTO) 69.1 % (42-78); TOTAL CELLS COUNTED % (AUTO) 100 %; WHITE BLOOD COUNT 11.4 10^3/uL (4.0-10.5)
[2020-04-16] MEDS ORDERED: PENICILLIN G-K 5 MILLION UNIT VIAL ONE (21:49)
[2020-04-16] MEDS ORDERED: PENICILLIN G POTASSIUM 5,000,000 UNIT in DEXTROSE 5%-WATER 100 ML IV ONE (21:56)
[2020-04-16] MEDS ORDERED: PENICILLIN G-K 5 MILLION UNIT VIAL IV ONE (22:15)
[2020-04-16] MEDS ORDERED: FENTANYL CITRATE INJ/PF 100 MCG/2 ML AMPUL ONE (22:18)
[2020-04-16] MEDS ORDERED: MIDAZOLAM 2 MG/2 ML INJ ONE (22:18)
[2020-04-16] MEDS ORDERED: KETOROLAC TROMETHAMINE INJ/PF 30 MG/1 ML SDV ONE (22:18)
[2020-04-16] MEDS ORDERED: OXYTOCIN 10 UNIT/ML VIAL ONE ×2 (22:18→23:03)
[2020-04-16] MEDS ORDERED: OXYTOCIN/0.9 % SODIUM CHLORIDE 30 UNIT/500 ML RTUINJ ONE (22:18)
[2020-04-16] MEDS ORDERED: ONDANSETRON HCL INJ/PF 4 MG/2 ML SDV ONE (22:19)
[2020-04-16] MEDS ORDERED: ACETAMINOPHEN 1,000 MG/100 ML RTUPB IV ONE (22:19)
[2020-04-16 23:13] LABS: AMORPHOUS SEDIMENT,URINE TRACE /HPF; APPEARANCE,URINE CLOUDY; BILIRUBIN,URINE NEGATIVE (NEGATIVE); COLOR,URINE YELLOW; GLUCOSE, URINE NEGATIVE (NEGATIVE); KETONES,URINE NEGATIVE (NEGATIVE); LEUKOCYTE ESTERASE,URINE LARGE (NEGATIVE); NITRITE,URINE NEGATIVE (NEGATIVE); PROTEIN,URINE NEGATIVE (NEGATIVE); URINE SPECIFIC GRAVITY 1.015; UROBILINOGEN,URINE NEGATIVE mg/dL (<2.0)
[2020-04-16] MEDS: KETOROLAC TROMETHAMINE INJ/PF 30 MG/1 ML SDV IV SCH (23:45)
[2020-04-17] MEDS ORDERED: ACETAMINOPHEN 1,000 MG/100 ML RTUPB IV PRN (00:09)
[2020-04-17] MEDS ORDERED: ACETAMINOPHEN 325 MG TABLET PO PRN (00:09)
[2020-04-17] MEDS ORDERED: SIMETHICONE 80 MG TAB.CHEW PO PRN (00:09)
[2020-04-17] MEDS ORDERED: HYDROMORPHONE HCL INJ/PF 2 MG/ML AMPULE IV PRN (00:09)
[2020-04-17] MEDS ORDERED: PROMETHAZINE HCL INJ 25 MG/1 ML VIAL IV PRN (00:09)
[2020-04-17] MEDS ORDERED: MEASLES,MUMPS&RUBELLA VACC/PF 0.5 ML VIAL SUBCUT PRN (00:09)
[2020-04-17] MEDS ORDERED: OXYTOCIN/0.9 % SODIUM CHLORIDE 30 UNIT/500 ML RTUINJ IV PRN (00:09)
[2020-04-17] MEDS ORDERED: RINGERS SOLUTION,LACTATED 1,000 ML IV PRN (00:09)
[2020-04-17] MEDS ORDERED: DIPH/PERTUSS(ACELL)/TETANUS VAC/PF 0.5 ML SYR (>=10YO) IM PRN (00:09)
[2020-04-17] MEDS ORDERED: OXYCODONE-ACETAMINOPHEN 5-325 MG TABLET PO PRN (00:09)
--- NOTE | 2020-04-17 00:21 | Operative Report ---
Operative Report DATE OF SURGERY: 04/16/20 PREOPERATIVE DIAGNOSIS: history of prior section, 37+3ega, h/o depress ion, h/o anorexia/bulemia, Asthma POSTOPERATIVE DIAGNOSIS: DANYELL -delivered OPERATION: Repeat section, Scar revision SURGEON: CHARMAINE WRIGHT ANESTHESIA: Spinal TISSUE REMOVED OR ALTERED: placenta and cord, not sent to pathology COMPLICATIONS: none ESTIMATED BLOOD LOSS: 600 QUANTITATIVE BLOOD LOSS: 915 INTRAOPERATIVE FINDINGS: normal bilateral tubes/ovaries, normal uterus, VMI with nuchal cord x 1, delivered at 2259, weight 7#4oz, Apgars 7/9 PROCEDURE: Anesthesia provider: [Omer Higginbotham PAPIER MACHE' MOLDER] Urine output: [300ml] IV fluids: [800ml] Indications: [19yo at 37+3ega presents with regular uterine contractions and cervical change from 2cm to 4cm. GBS unknown therefore PCN was given for GBS prophylaxis. She has had a prior section for Arrest of descent after pushing for 4-5 hours with 7#8oz baby. She was counseled on the risks, benefits, alternatives and desires to proceed with repeat section. She desires to use COCPs for contraception .] Procedure: The patient was taken to the operating room where spinal anesthesia was obtained and found to be adequate. She was then prepped and draped in the normal sterile fashion and placed in the dorsal supine position with a leftward tilt. The prior Pfannenstiel skin incision was excised and then made and carried through to the underlying layers of the fascia with the scalpel. The fascia was incised in the midline and the incision extended laterally with the Loredo scissors. The superior aspect of the fascial incision was then grasped with Shabnam clamps elevated and the underlying rectus muscles dissected off [bluntly]. Attention was then turned to the inferior aspect of the fascial incision which in a similar fashion was grasped, tented up with Shabnam clamps, and the rectus muscles dissected off [bluntly]. The rectus muscles were then in the midline and the peritoneum at the amount identified and entered [bluntly]. The peritoneal incision was then extended superiorly and inferiorly with good visualization of the bladder. The bladder blade was inserted and the vesicouterine peritoneum identified grasped with Peruvian pickups and entered sharply with the Metzenbaum scissors. This incision was then extended laterally with the Metzenbaum scissors and a bladder flap created digitally. The bladder blade was then reinserted and the lower uterine segment incised in a transverse fashion with the scalpel. The uterine incision was then extended bluntly. The bladder blade was removed and the 's head was delivered from cephalic presentation atraumatically. The nose and mouth were suctioned and the cord doubly clamped and cut. And the was handed off to waiting pediatricians. The placenta was then delivered spontaneously and the uterus exteriorized and cleared of all clots and debris. The uterine incision was then repaired with 1- 0 Vicryl in a running locked fashion. A second layer of the same suture was used to obtain hemostasis via imbrication of the initial layer. The bladder flap was then repaired with 3-0 chromic in a running fashion. The uterus was returned to the patient's abdomen and Surgicel was placed over the lower uterine segment for additional hemostasis. The gutters were cleared of all clots and debris. All operative sites were noted to be hemostatic. The fascia was reapproximated with 0 Vicryl in a running fashion from each lateral edge to the midline. The skin was closed with 3-0 Monocryl in a running subcuticular fashion with overlying Dermabond for additional dressing as well as wound closure. The patient tolerated the procedure well. Sponge lap needle and instrument counts are correct times 2. 2 g of Ancef were given prior to skin incision. The patient was taken to the recovery area awake and in stable condition.
[2020-04-17] MEDS ORDERED: MEPERIDINE HCL/PF INJ 25 MG/1 ML DISP.SYRIN ONE (01:02)
--- NOTE | 2020-04-17 01:46 | Birth Certificate Data ---
Cert Data Datetime Report Generated by CPN: 04/17/2020 01:46 CERTIFICATE DATA 47a. Care: Yes (12/22/2019 15:26:Janette Summers RN) 47b. Date of First Visit: 11/04/2019 00:00 (12/22/2019 15:26:Janette Summers RN) 47c. Date of Last Visit: 02/23/2020 00:00 (12/22/2019 15:26:Janette Summers RN) 47d. Number of Visits: 8 (12/22/2019 15:26:Janette Summers RN) 48a. Number of Prev Live Births: 1 (12/22/2019 15:26:Janette Summers RN) 48b. Now Livin (12/22/2019 15:26:Janette Summers RN) 48c. Live Births Now : 0 (12/22/2019 15:26:QS system process) 48d. Date of Last Live : 11/01/2017 00:00 (12/22/2019 15:26:Janette Summers RN) 48e. Losses: 0 (12/22/2019 15:26:Janette Summers RN) RISK FACTORS IN THIS 49a. Diabetes: No (12/22/2019 15:26:Janette Summers RN) 49b. Hypertension: No (12/22/2019 15:26:Janette Summers RN) Stillborns: No (12/22/2019 15:26:Janette Summers RN) IUGR: No (12/22/2019 15:26:Janette Summers RN) 49e. Infertility Treatment: No (12/22/2019 15:26:Janette Summers RN) 49f. Previous Cesareans: 1 (12/22/2019 15:26:Janette Summers RN) Mother's Height 50b. Height Inches: 64 (04/16/2020 18:00:QS system process) Mother's Weight 51a. Pre- Weight: 120 (12/22/2019 15:26:Janette Summers RN) 51b. Weight at Time of Delivery: 180 (04/16/2020 18:00:QS system process) 52. Dt Last Normal Menses Began: 07/28/2019 00:00 (12/22/2019 15:26:Janette Summers RN) Infections Present/Treated 53a. Gonorrhea: No (12/22/2019 15:26:Janette Summers RN) Results this Hospital Visit : Negative (12/22/2019 15:26:Janette Summers RN) 53b. Syphilis: No (12/22/2019 15:26:Janette Summers RN) Results this Hospital Visit: NONREACTIVE (04/11/2020 20:30:QS system process) 53c. Chlamydia: No (12/22/2019 15:26:Janette Summers RN) Results this Hospital Visit: Negative (12/22/2019 15:26:Janette Summers RN) 53d. Hepatitis B: No (12/22/2019 15:26:Janette Summers RN) Results this Hospital Visit: Negative (12/22/2019 15:26:Janette Summers RN) 53i. Date Tested: 11/13/2019 00:00 (12/22/2019 15:26:Janette Summers RN) Obstetric Procedures 54a, b, c. Obstetric Procedures: Ultrasound (12/22/2019 15:26:Janette Summers, RN) Cigarette Smoking 55c. 2nd Trimester of Preg- Ci (12/22/2019 15:26:Janettelesli Summers, RN) Onset of Labor 56b. Precipitous Labor <3 Hrs: 5 (12/22/2019 15:26:QS system process) 56c. Prolonged Labor > 20 Hrs: 5 (12/22/2019 15:26:QS system process) 57a. Induction of Labor: N/A (12/22/2019 15:26:Janette Summers RN) 57c. Non-Vertex Presentation A: Vertex (12/22/2019 15::Janette Summers RN) 57d. Steroids - Lung Mat: None (12/22/2019 15::Janette Summers RN) 57d. Steroids - Lung Mat: Not Applicable (12/22/2019 15::Janette Summers RN) 57e. Antibiotics During Labor: 2158 (12/22/2019 15:26:Janette Summers RN) 57h. Intolerance of Labor: Repeat Elective (12/22/2019 15:26:Janette Summers RN) 57i. Epidural/Spinal Anesthesia: None (12/22/2019 15:26:Janette Summers RN) Method of Delivery 58a. Forceps - Unsuccessful A: N/A (12/22/2019 15:26:Keira Walker RN) 58b. Vacuum - Unsuccessful A: N/A (12/22/2019 15::Keira Walker RN) 58c. Presentation at 58c. Presentation at - A : Vertex (12/22/2019 15:26:Janette Summers RN) 58c. Presentation at - A : N/A (12/22/2019 15:26:Janette Summers RN) 58c. Presentation at - A : Cephalic (12/22/2019 15:26:Janette Summers RN) Final Route and Method of Del 58d. Baby A Route/Delivery: (12/22/2019 15:26:Keira Walker RN) 58e. Trial of Labor Attempted: No (12/22/2019 15:26:Janette Summers RN) 58e. Trial of Labor Attempted A: N/A (12/22/2019 15:26:Janette Summers RN) 58e. Trial of Labor Attempted B: N/A (12/22/2019 15:26:Janette Summers RN) Birthweight Baby A: 3290 (12/22/2019 15:26:Keira Walker RN) 60a. Pounds : 7 (12/22/2019 15:26:QS system process) 60b. Ounces: 4 (12/22/2019 15:26:QS system process) 61. GA at Delivery Baby A: 37.4 (12/22/2019 15:26:Janette Summers RN) : Early Term- 37- 38.6 Weeks (12/22/2019 15:26:QS system process) 62a. 5 Minute Baby A: 9 (12/22/2019 15:26:QS system process)
--- NOTE | 2020-04-17 01:46 | Delivery Summary ---
Del Sum A-C Datetime Report Generated by CPN: 04/17/2020 01:45 DELIVERY PERSONNEL DELIVERY PERSONNEL: [id number] Delivery Doctor:: Anita Lockhart MD Anesthesiologist:: Dr. Adame LINE UP MACHINE OPERATOR:: Omer Normile, LINE UP MACHINE OPERATOR Filling Layer Up:: Janette Summers, RN Director Geothermal Operations/MATERIAL MANAGER: Nellie Phong, ST Director Geothermal Operations/MATERIAL MANAGER: Nahomi Blankenship, DAIRY TECHNICIAN MATERNAL INFORMATION Delivery Anesthesia: Spinal Medications After Delivery: Pitocin 30 Units in 500ml NS/D5W Delivery QBL: 915 Maternal Complications: None LABOR SUMMARY EDC: 05/03/2020 00:00 No. Babies in Womb: 1 Attempted: No Labor Anesthesia: None LABOR INFORMATION Reason for Induction: Not Applicable Onset of Labor: 04/16/2020 18:00 Oxytocin: N/A Group B Beta Strep: unknown Antibiotics # of Doses: 1 Antibiotics Time of Last Dose: 2158 Name of Antibiotic Given: penicillin G Steroids Given: None Reason Steroids Not Administered: Not Applicable STAGES OF LABOR Stage 3 hr: 0 Stage 3 min: 1 Total Time in Labor hr: 5 Total Time in Labor min: 0 CSECTION DELIVERY Primary Indication: Repeat Elective CSection Urgency: Non-Scheduled CSection Incidence: Repeat Labor: Labor Elective: Nonelective CSection Incision: Lower Uterine Transverse BABY A INFORMATION Infant Delivery Date/Time: 04/16/2020 22:59 Method of Delivery: Nurse Controlled Delivery: No Born in Route : No : N/A Forceps: N/A Vacuum Extraction: N/A Shoulder Dystocia : No PRESENTATION/POSITION BABY A Presentation: Cephalic Cephalic Presentation: Vertex Breech Presentation: N/A PLACENTA INFORMATION BABY A Placenta Delivery Time : 04/16/2020 23:00 Placenta Method of Delivery: Manual Removal Placenta Status: Delivered SCORES BABY A Heart Rate 1 min: >100 bpm Resp Effort 1 min: Good Cry Reflex Irritability 1 min: Cough or Sneeze or Pulls Away Muscle Tone 1 min: Some Flexion of Extremities Color 1 min: Blue/Pale Resuscitation Effort 1 min: Tactile Stimulation SCORE 1 MIN: 7 Heart Rate 5 min: >100 bpm Resp Effort 5 min: Good Cry Reflex Irritability 5 min: Cough or Sneeze or Pulls Away Muscle Tone 5 min: Active Motion Color 5 min: Body [place], Extremities Blue Resuscitation Effort 5 min: Tactile Stimulation SCORE 5 MIN: 9 INFORMATION BABY A Gestational Age at Delivery: 37.4 Gestational Status: Early Term- 37- 38.6 Weeks Infant Outcome : Liveborn Condition : Stable Sex: Male IDENTIFICATION BABY A Infant Verification Date/Time: 04/17/2020 00:40 ID Band Number: [id number] Mother's Name Verified: Yes RN Verifying Infant: MKelin Summers, RN and M. Jarmin, RN WEIGHT/LENGTH BABY A Birthweight (gm): 3290 Infant Weight (lb): 7 Weight (oz): 4 Length (in): 19.25 Infant Length (cm): 48.90 CORD INFORMATION BABY A No. Cord Vessels: 3 Nuchal Cord : Around Neck x1, Loose Cord Blood Taken: Yes-For Eval (Mom's Blood Type - or O+) ASSESSMENT BABY A Complications: None Physical Findings at Delivery: Other Physical Findings- Other: see initial nursery note Transferred To: [facility] BABY B INFORMATION : N/A SIGNATURES : I was personally available for consultation and serving as supervising physician for the MLP.
[2020-04-17] MEDS: OXYCODONE-ACETAMINOPHEN 5-325 MG TABLET PO PRN ×3 (02:41→20:12)
[2020-04-17] MEDS: RINGERS SOLUTION,LACTATED 1,000 ML IV PRN ×2 (02:42→10:00)
[2020-04-17 05:56] LABS: URINE AMPHETAMINES SCREEN NEGATIVE; URINE BARBITURATES SCREEN NEGATIVE; URINE BENZODIAZEPINES SCREEN NEGATIVE; URINE COCAINE SCREEN NEGATIVE; URINE MARIJUANA (THC) SCREEN NEGATIVE; URINE METHADONE SCREEN NEGATIVE; URINE PHENCYCLIDINE SCREEN NEGATIVE
[2020-04-17] MEDS: KETOROLAC TROMETHAMINE INJ/PF 30 MG/1 ML SDV IV SCH ×2 (08:10→16:47)
--- NOTE | 2020-04-17 09:15 | PDOC PROGRESS REPORT ---
Subjective-OB Progress Note for:: 04/17/20 Subjective: Pt resting quietly, FC to BSD with clear yellow urine. Pt doing well per RN. Physical Exam (OB) Vital Signs: Temp Pulse Resp BP Pulse Ox 97.6 F 58 L 16 105/50 L 98 04/17/20 07:40 04/17/20 07:40 04/17/20 07:40 04/17/20 07:40 04/17/20 07:40 Intake & Output 04/16/20 04/17/20 04/18/20 06:59 06:59 06:59 Output Total 200 Balance -200 Weight 81.7 kg - Incision: Open, Well Approximated Closure Type: Surgical Glue - Maternal Morbidity 59. Maternal Morbidity (serious complications experinced by the mother associated with labor and delivery: None of the above - Lochia Lochia Amount: Scant < 10 ml Lochia Color: Rubra/Red - Abdomen Description: Tender, Soft Hernia Present: No Fundal Description: Firm, Midline Fundal Height: u/u - u/2 Objective-Diagnostic Laboratory: 04/16/20 20:24 04/16/20 04/16/20 04/16/20 19:15 20:24 20:24 WBC 11.4 H RBC 2.95 L Hgb 9.8 L Hct 27.9 L MCV 95 MCH 33.2 MCHC 35.0 RDW 14.4 H Plt Count 344 Seg Neutrophils % 69.1 Urine Color YELLOW Urine Appearance CLOUDY Urine pH 6.0 Ur Specific [place] 1.015 Urine Protein NEGATIVE Urine Glucose (UA) NEGATIVE Urine Ketones NEGATIVE Urine Blood LARGE H Urine Nitrite NEGATIVE Ur Leukocyte Esterase LARGE H Urine WBC (Auto) 21 Urine RBC (Auto) 3 Blood Type A POSITIVE Antibody Screen NEGATIVE Assessment and Plan(PN) - Assessment and Plan (1) History of section Is this a current diagnosis for this admission?: Yes (2) S/P repeat low transverse Is this a current diagnosis for this admission?: Yes (3) Depression Qualifiers: Depression Type: major depressive disorder Major depression recurrence: recurrent Active/Remission status: currently active Major depression episode severity: mild Qualified Code(s): F33.0 - Major depressive disorder, recurrent, mild Is this a current diagnosis for this admission?: Yes - Time Spent with Patient Time with patient: Less than 15 minutes Medications reviewed and adjusted accordingly: Yes - Disposition Anticipated Discharge Disposition: Home, Self Care Anticipated Discharge Timeframe: within 48 hours
--- NOTE | 2020-04-17 09:17 | Birth Certificate Data ---
Cert Data Datetime Report Generated by CPN: 04/17/2020 09:17 CERTIFICATE DATA 47a. Care: Yes (12/22/2019 15:26:Janette Summers RN) 47b. Date of First Visit: 11/04/2019 00:00 (12/22/2019 15:26:Janette Summers RN) 47c. Date of Last Visit: 02/23/2020 00:00 (12/22/2019 15:26:Janette Summers RN) 47d. Number of Visits: 8 (12/22/2019 15:26:Janette Summers RN) 48a. Number of Prev Live Births: 1 (12/22/2019 15:26:Janette Summers RN) 48b. Now Livin (12/22/2019 15:26:Janette Summers RN) 48c. Live Births Now : 0 (12/22/2019 15:26:QS system process) 48d. Date of Last Live : 11/01/2017 00:00 (12/22/2019 15:26:Janette Summers RN) 48e. Losses: 0 (12/22/2019 15:26:Janette Summers RN) RISK FACTORS IN THIS 49a. Diabetes: No (12/22/2019 15:26:Janette Summers RN) 49b. Hypertension: No (12/22/2019 15:26:Janette Summers RN) Stillborns: No (12/22/2019 15:26:Janette Summers RN) IUGR: No (12/22/2019 15:26:Janette Summers RN) 49e. Infertility Treatment: No (12/22/2019 15:26:Janette Summers RN) 49f. Previous Cesareans: 1 (12/22/2019 15:26:Janette Summers RN) Mother's Height 50b. Height Inches: 64 (04/17/2020 02:09:QS system process) 50b. Height Inches: 64 (04/16/2020 18:00:QS system process) 50b. Height Inches: 64 (04/11/2020 19:25:QS system process) 50b. Height Inches: 64 (03/21/2020 11:55:QS system process) Mother's Weight 51a. Pre- Weight: 120 (12/22/2019 15:26:Janette Summers RN) 51b. Weight at Time of Delivery: 180 (04/17/2020 02:09:QS system process) 51b. Weight at Time of Delivery: 180 (04/16/2020 18:00:QS system process) 51b. Weight at Time of Delivery: 180 (04/11/2020 19:25:QS system process) 51b. Weight at Time of Delivery: 176 (03/21/2020 11:55:QS system process) 52. Dt Last Normal Menses Began: 07/28/2019 00:00 (12/22/2019 15:26:Janette Summers RN) Infections Present/Treated 53a. Gonorrhea: No (12/22/2019 15:26:Janette Summers RN) Results this Hospital Visit : Negative (12/22/2019 15:26:Janette Summers RN) 53b. Syphilis: No (12/22/2019 15:26:Janette Summers RN) Results this Hospital Visit: NONREACTIVE (04/11/2020 20:30:QS system process) 53c. Chlamydia: No (12/22/2019 15:26:Janette Summers RN) Results this Hospital Visit: Negative (12/22/2019 15:26:Janette Summers RN) 53d. Hepatitis B: No (12/22/2019 15:26:Janette Summers RN) Results this Hospital Visit: Negative (12/22/2019 15:26:Janette Summers RN) 53i. Date Tested: 11/13/2019 00:00 (12/22/2019 15::Janette Summers RN) Obstetric Procedures 54a, b, c. Obstetric Procedures: Ultrasound (12/22/2019::Janette Summers RN) Cigarette Smoking 55c. 2nd Trimester of Preg- Ci (12/22/2019 15:26:Janette Summers RN) Onset of Labor 56b. Precipitous Labor <3 Hrs: 5 (12/22/2019:26:QS system process) 56c. Prolonged Labor > 20 Hrs: 5 (12/22/2019 15:26:QS system process) 57a. Induction of Labor: N/A (12/22/2019::Janette Summers RN) 57c. Non-Vertex Presentation A: Vertex (12/22/2019::Janette Summers RN) 57d. Steroids - Lung Mat: None (12/22/2019::Janette Summers RN) 57d. Steroids - Lung Mat: Not Applicable (12/22/2019::Janette Summers RN) 57e. Antibiotics During Labor: 2158 (12/22/2019::Janette Summers RN) 57h. Intolerance of Labor: Repeat Elective (12/22/2019::Janette Summers RN) 57i. Epidural/Spinal Anesthesia: None (12/22/2019::Janette Summers RN) Method of Delivery 58a. Forceps - Unsuccessful A: N/A (12/22/2019 15:26:Keira Walker RN) 58b. Vacuum - Unsuccessful A: N/A (12/22/2019 15:26:Keira Walker RN) 58c. Presentation at 58c. Presentation at - A : Vertex (12/22/2019 15:26:Janette Summers RN) 58c. Presentation at - A : N/A (12/22/2019 15:26:Janette Summers RN) 58c. Presentation at - A : Cephalic (12/22/2019 15:26:Janette Summers RN) Final Route and Method of Del 58d. Baby A Route/Delivery: (12/22/2019 15:26:Keira Walker RN) 58e. Trial of Labor Attempted: No (12/22/2019 15:26:Janette Summers RN) 58e. Trial of Labor Attempted A: N/A (12/22/2019 15:26:Janette Summers RN) 58e. Trial of Labor Attempted B: N/A (12/22/2019 15:26:Janette Summers RN) Birthweight Baby A: 3290 (12/22/2019 15:26:Keira Walker RN) 60a. Pounds : 7 (12/22/2019 15:26:QS system process) 60b. Ounces: 4 (12/22/2019 15:26:QS system process) 61. GA at Delivery Baby A: 37.4 (12/22/2019 15:26:Janette Summers RN) : Early Term- 37- 38.6 Weeks (12/22/2019 15:26:QS system process) 62a. 5 Minute Baby A: 9 (12/22/2019 15:26:QS system process)
[2020-04-17] MEDS ORDERED: (PENDING PHARMACY ID) (Lurasidone Hcl [Latuda] 20 MG) PO SCH (10:00)
[2020-04-17] MEDS: BUSPIRONE HCL 10 MG TABLET PO SCH (10:04)
[2020-04-17] MEDS: DOCUSATE SODIUM 100 MG CAPSULE PO SCH ×2 (10:07→17:12)
[2020-04-17] MEDS: LURASIDONE HCL 40 MG TABLET PO SCH (10:07)
[2020-04-17] MEDS: PRENATAL VITAMIN W DHA CAPSULE PO SCH (10:09)
--- NOTE | 2020-04-17 22:18 | Birth Certificate Data ---
Cert Data Datetime Report Generated by CPN: 04/17/2020 22:17 CERTIFICATE DATA 47a. Care: Yes (12/22/2019 15:26:Janette Summers RN) 47b. Date of First Visit: 11/04/2019 00:00 (12/22/2019 15:26:Janette Summers RN) 47c. Date of Last Visit: 02/23/2020 00:00 (12/22/2019 15:26:Janette Summers RN) 47d. Number of Visits: 8 (12/22/2019 15:26:Janette Summers RN) 48a. Number of Prev Live Births: 1 (12/22/2019 15:26:Janette Summers RN) 48b. Now Livin (12/22/2019 15:26:Janette Summers RN) 48c. Live Births Now : 0 (12/22/2019 15:26:QS system process) 48d. Date of Last Live : 11/01/2017 00:00 (12/22/2019 15:26:Janette Summers RN) 48e. Losses: 0 (12/22/2019 15:26:Janette Summers RN) RISK FACTORS IN THIS 49a. Diabetes: No (12/22/2019 15:26:Janette Summers RN) 49b. Hypertension: No (12/22/2019 15:26:Janette Summers RN) 49d. Stillborns: No (12/22/2019 15:26:Janette Summers RN) 49d. IUGR: No (12/22/2019 15:26:Janette Summers RN) 49e. Infertility Treatment: No (12/22/2019 15:26:Janette Summers RN) 49f. Previous Cesareans: 1 (12/22/2019 15:26:Janette Summers RN) Mother's Height 50b. Height Inches: 64 (04/17/2020 02:09:QS system process) 50b. Height Inches: 64 (04/16/2020 18:00:QS system process) 50b. Height Inches: 64 (04/11/2020 19:25:QS system process) 50b. Height Inches: 64 (03/21/2020 11:55:QS system process) Mother's Weight 51a. Pre- Weight: 120 (12/22/2019 15:26:Janette Summers RN) 51b. Weight at Time of Delivery: 180 (04/17/2020 02:09:QS system process) 51b. Weight at Time of Delivery: 180 (04/16/2020 18:00:QS system process) 51b. Weight at Time of Delivery: 180 (04/11/2020 19:25:QS system process) 51b. Weight at Time of Delivery: 176 (03/21/2020 11:55:QS system process) 52. Dt Last Normal Menses Began: 07/28/2019 00:00 (12/22/2019 15:26:Janette Summers RN) Infections Present/Treated 53a. Gonorrhea: No (12/22/2019 15:26:Janette Summers RN) Results this Hospital Visit : Negative (12/22/2019 15:26:Janette Summers RN) 53b. Syphilis: No (12/22/2019 15:26:Janette Summers RN) Results this Hospital Visit: NONREACTIVE (04/11/2020 20:30:QS system process) 53c. Chlamydia: No (12/22/2019 15:26:Janette Summers RN) Results this Hospital Visit: Negative (12/22/2019 15:26:Janette Summers RN) 53d. Hepatitis B: No (12/22/2019 15:26:Jantete Summers RN) Results this Hospital Visit: Negative (12/22/2019 15:26:Janette Summers RN) 53i. Date Tested: 11/13/2019 00:00 (12/22/2019 15:26:Janette Summers RN) Obstetric Procedures 54a, b, c. Obstetric Procedures: Ultrasound (12/22/2019 15:26:Janette Summers RN) Cigarette Smoking 55c. 2nd Trimester of Preg- Ci (12/22/2019 15:26:Janette Summers RN) Onset of Labor 56b. Precipitous Labor <3 Hrs: 5 (12/22/2019:26:QS system process) 56c. Prolonged Labor > 20 Hrs: 5 (12/22/2019 15:26:QS system process) 57a. Induction of Labor: N/A (12/22/2019::Janette Summers RN) 57c. Non-Vertex Presentation A: Vertex (12/22/2019:Janette Summers RN) 57d. Steroids - Lung Mat: None (12/22/2019::Janette Summers RN) 57d. Steroids - Lung Mat: Not Applicable (12/22/2019::Janette Summers RN) 57e. Antibiotics During Labor: 2158 (12/22/2019::Janette Summers RN) 57h. Intolerance of Labor: Repeat Elective (12/22/2019::Janette Summers RN) 57i. Epidural/Spinal Anesthesia: None (12/22/2019::Janette Summers RN) Method of Delivery 58a. Forceps - Unsuccessful A: N/A (12/22/2019 15:26:Keira Walker RN) 58b. Vacuum - Unsuccessful A: N/A (12/22/2019 15:26:Keira Walker RN) 58c. Presentation at 58c. Presentation at - A : Vertex (12/22/2019 15:26:Janette Summers RN) 58c. Presentation at - A : N/A (12/22/2019 15:26:Janette Summers RN) 58c. Presentation at - A : Cephalic (12/22/2019 15:26:Janette Summers RN) Final Route and Method of Del 58d. Baby A Route/Delivery: (12/22/2019 15:26:Keira Walker RN) 58e. Trial of Labor Attempted: No (12/22/2019 15:26:Janette Summers RN) 58e. Trial of Labor Attempted A: N/A (12/22/2019 15:26:Janette Summers RN) 58e. Trial of Labor Attempted B: N/A (12/22/2019 15:26:Janette Summers RN) Birthweight Baby A: 3290 (12/22/2019 15:26:Keira Walker RN) 60a. Pounds : 7 (12/22/2019 15:26:QS system process) 60b. Ounces: 4 (12/22/2019 15:26:QS system process) 61. GA at Delivery Baby A: 37.4 (12/22/2019 15:26:Janette Summers RN) : Early Term- 37- 38.6 Weeks (12/22/2019 15:26:QS system process) 62a. 5 Minute Baby A: 9 (12/22/2019 15:26:QS system process)
[2020-04-18] MEDS: IBUPROFEN 800 MG TABLET PO SCH ×5 (00:15→23:38)
[2020-04-18] MEDS: OXYCODONE-ACETAMINOPHEN 5-325 MG TABLET PO PRN ×2 (02:33→14:31)
[2020-04-18 06:37] LABS: HEMATOCRIT 25.3 % (36.0-47.0); HEMOGLOBIN 8.9 g/dL (12.0-15.5); MEAN CORPUSCULAR HEMOGLOBIN 33.7 pg (27.0-33.4); MEAN CORPUSCULAR HGB CONC 35.2 g/dL (32.0-36.0); MEAN CORPUSCULAR VOLUME 96 fl (80-97); PLATELET COUNT 281 10^3/uL (150-450); RED BLOOD COUNT 2.64 10^6/uL (3.72-5.28); RED CELL DISTRIBUTION WIDTH 14.4 % (11.5-14.0); WHITE BLOOD COUNT 8.6 10^3/uL (4.0-10.5)
[2020-04-18] MEDS ORDERED: IRON SUCROSE COMPLEX INJ/PF 100 MG/5 ML SDV IV ONE ×2 (07:35→11:00)
--- NOTE | 2020-04-18 10:08 | PDOC PROGRESS REPORT ---
Subjective-OB Progress Note for:: 04/18/20 Subjective: Pt doing well, no concerns. She reports regular diet, voiding without difficulty and +flatus. Bleeding normal Physical Exam (OB) Vital Signs: Temp Pulse Resp BP Pulse Ox 97.4 F 62 16 93/48 L 100 04/18/20 07:16 04/18/20 07:16 04/18/20 07:16 04/18/20 07:16 04/18/20 07:16 Intake & Output 04/17/20 04/18/20 04/19/20 06:59 06:59 06:59 Intake Total 913 Output Total 200 1800 Balance -200 -887 Weight 81.7 kg - Dressing Removed: No Incision: Well Approximated Closure Type: Surgical Glue - Maternal Morbidity 59. Maternal Morbidity (serious complications experinced by the mother associated with labor and delivery: None of the above - Lochia Lochia Amount: Scant < 10 ml Lochia Color: Rubra/Red - Abdomen Description: Tender, Soft Hernia Present: No Fundal Description: Firm, Midline Fundal Height: u/u - u/2 Objective-Diagnostic Laboratory: 04/18/20 06:17 04/18/20 06:17 WBC 8.6 RBC 2.64 L Hgb 8.9 L Hct 25.3 L MCV 96 MCH 33.7 H MCHC 35.2 RDW 14.4 H Plt Count 281 Assessment and Plan(PN) - Assessment and Plan (1) History of section Is this a current diagnosis for this admission?: Yes (2) S/P repeat low transverse Is this a current diagnosis for this admission?: Yes (3) Depression Qualifiers: Depression Type: major depressive disorder Major depression recurrence: recurrent Active/Remission status: currently active Major depression episode severity: mild Qualified Code(s): F33.0 - Major depressive disorder, recurrent, mild Is this a current diagnosis for this admission?: Yes - Time Spent with Patient Time with patient: Less than 15 minutes Medications reviewed and adjusted accordingly: Yes - Disposition Anticipated Discharge Disposition: Home, Self Care Anticipated Discharge Timeframe: within 24 hours
[2020-04-18] MEDS: LURASIDONE HCL 40 MG TABLET PO SCH (10:26)
[2020-04-18] MEDS: BUSPIRONE HCL 10 MG TABLET PO SCH (10:28)
[2020-04-18] MEDS: PRENATAL VITAMIN W DHA CAPSULE PO SCH (10:30)
[2020-04-18] MEDS: DOCUSATE SODIUM 100 MG CAPSULE PO SCH ×2 (10:30→17:31)
[2020-04-19] MEDS: IBUPROFEN 800 MG TABLET PO SCH ×2 (05:29→12:23)
--- NOTE | 2020-04-19 08:49 | PDOC DISCHARGE SUMMARY ---
Impression - Admit/DC Date/PCP Admission Date/Primary Care Provider: 04/16/20 19:16 HUEY VARGHESE MD Discharge Date: 04/19/20 - Discharge Diagnosis (1) History of section Is this a current diagnosis for this admission?: Yes (2) S/P repeat low transverse Is this a current diagnosis for this admission?: Yes (3) Depression Is this a current diagnosis for this admission?: Yes - Assessment Summary: doing well s/p repeat c/section with btl. ready for discharge. ambulating well, ltolerating regular diet - Additional Information Resuscitation Status: Full Code Discharge Diet: As Tolerated Discharge Activity: Balance Activity w/Rest, No Driving, No Lifting Over 10 Pounds, No Lifting/Push/Pulling, Pelvic Rest, No tub bath, Walk Frequently Referrals: HUEY VARGHESE MD [Primary Care Provider] - Prescriptions: Oxycodone HCl/Acetaminophen [Percocet 5-325 mg Tablet] 1 tab PO Q4HP PRN #30 tablet PRN Reason: Docusate Sodium [Colace 100 mg Capsule] 100 mg PO BID #60 capsule Ibuprofen [Motrin 800 mg Tablet] 800 mg PO Q6 #60 tablet Home Medications: Vitamin [-U Multiple Vitamin Capsule] 1 cap PO DAILY 12/22/19 Buspirone HCl [Buspar 10 mg Tablet] 0.5 tab PO DAILY 03/21/20 Lurasidone HCl [Latuda] 20 mg PO DAILY 03/21/20 Docusate Sodium [Colace 100 mg Capsule] 100 mg PO BID #60 capsule 04/19/20 Ibuprofen [Motrin 800 mg Tablet] 800 mg PO Q6 #60 tablet 04/19/20 Oxycodone HCl/Acetaminophen [Percocet 5-325 mg Tablet] 1 tab PO Q4HP PRN #30 tablet 04/19/20 History of Present Illiness History of Present Illness: JOAN RODRIGUEZ is a 19 year old female Physical Exam - Physical Exam Vital Signs: Temp Pulse Resp BP Pulse Ox 97.7 F 73 18 105/57 L 100 04/19/20 04:00 04/19/20 04:00 04/19/20 04:00 04/19/20 04:00 04/19/20 04:00 Intake & Output 04/18/20 04/19/20 04/20/20 06:59 06:59 06:59 Intake Total 913 1000 Output Total 1800 Balance -887 1000 Results Laboratory Results: WBC 8.6 10^3/uL (4.0-10.5) 04/18/20 06:17 RBC 2.64 10^6/uL (3.72-5.28) L 04/18/20 06:17 Hgb 8.9 g/dL (12.0-15.5) L 04/18/20 06:17 Hct 25.3 % (36.0-47.0) L 04/18/20 06:17 MCV 96 fl (80-97) 04/18/20 06:17 MCH 33.7 pg (27.0-33.4) H 04/18/20 06:17 MCHC 35.2 g/dL (32.0-36.0) 04/18/20 06:17 RDW 14.4 % (11.5-14.0) H 04/18/20 06:17 Plt Count 281 10^3/uL (150-450) 04/18/20 06:17 Lymph % (Auto) 22.9 % (13-45) 04/16/20 20:24 [place] % (Auto) 7.3 % (3-13) 04/16/20 20:24 Eos % (Auto) 0.5 % (0-6) 04/16/20 20:24 Baso % (Auto) 0.2 % (0-2) 04/16/20 20:24 Absolute Neuts (auto) 7.9 10^3/uL (1.7-8.2) 04/16/20 20:24 Absolute Lymphs (auto) 2.6 10^3/uL (0.5-4.7) 04/16/20 20:24 Absolute Monos (auto) 0.8 10^3/uL (0.1-1.4) 04/16/20 20:24 Absolute Eos (auto) 0.1 10^3/uL (0.0-0.6) 04/16/20 20:24 Absolute Basos (auto) 0.0 10^3/uL (0.0-0.2) 04/16/20 20:24 Seg Neutrophils % 69.1 % (42-78) 04/16/20 20:24 Urine Color YELLOW 04/16/20 19:15 Urine Appearance CLOUDY 04/16/20 19:15 Urine pH 6.0 (5.0-9.0) 04/16/20 19:15 Ur Specific [place] 1.015 04/16/20 19:15 Urine Protein NEGATIVE mg/dL (NEGATIVE) 04/16/20 19:15 Urine Glucose (UA) NEGATIVE mg/dL (NEGATIVE) 04/16/20 19:15 Urine Ketones NEGATIVE mg/dL (NEGATIVE) 04/16/20 19:15 Urine Blood LARGE (NEGATIVE) H 04/16/20 19:15 Urine Nitrite NEGATIVE (NEGATIVE) 04/16/20 19:15 Urine Bilirubin NEGATIVE (NEGATIVE) 04/16/20 19:15 Urine Urobilinogen NEGATIVE mg/dL (<2.0) 04/16/20 19:15 Ur Leukocyte Esterase LARGE (NEGATIVE) H 04/16/20 19:15 Urine WBC (Auto) 21 /HPF 04/16/20 19:15 Urine RBC (Auto) 3 /HPF 04/16/20 19:15 Urine Bacteria (Auto) 3+ /HPF 04/16/20 19:15 Squamous Epi Cells Auto 11 /HPF 04/16/20 19:15 Amorphous Sediment Auto TRACE /HPF 04/16/20 19:15 Urine Mucus (Auto) FEW /LPF 04/16/20 19:15 Urine Ascorbic Acid NEGATIVE (NEGATIVE) 04/16/20 19:15 Urine Opiates Screen NEGATIVE 04/16/20 19:15 Urine Methadone Screen NEGATIVE 04/16/20 19:15 Ur Barbiturates Screen NEGATIVE 04/16/20 19:15 Ur Phencyclidine Scrn NEGATIVE 04/16/20 19:15 Ur Amphetamines Screen NEGATIVE 04/16/20 19:15 U Benzodiazepines Scrn NEGATIVE 04/16/20 19:15 Urine Cocaine Screen NEGATIVE 04/16/20 19:15 U Marijuana (THC) Screen NEGATIVE 04/16/20 19:15 RPR NONREACTIVE (NONREACTIVE) 04/16/20 20:24 Blood Type A POSITIVE 04/16/20 20:24 Antibody Screen NEGATIVE 04/16/20 20:24 Stroke Is this a Stroke Patient?: No Acute Heart Failure - Is this a Heart Failure Patient?: No
[2020-04-19] MEDS: LURASIDONE HCL 40 MG TABLET PO SCH (09:23)
[2020-04-19] MEDS: BUSPIRONE HCL 10 MG TABLET PO SCH (09:24)
[2020-04-19] MEDS: DOCUSATE SODIUM 100 MG CAPSULE PO SCH (09:24)
[2020-04-19] MEDS: PRENATAL VITAMIN W DHA CAPSULE PO SCH (09:24)
[2020-04-19 10:34] VITALS: BP 114/64
== END 2020-04-19 14:15 | disposition home or self-care (01) | DRG 787 ==
LOC: LC 17:30 → LR 19:16 → 2N 04-17 02:07
PROVIDERS: ADMIT Student in an Organized Health Care Education/Training Program; ATTEND Student in an Organized Health Care Education/Training Program
PROC: 10D00Z1 Extraction of Products of Conception, Low, Open Approach (ICD-10-PCS; principal; 2020-04-16)
PROC: 3E0234Z Introduction of Serum, Toxoid and Vaccine into Muscle, Percutaneous Approach (ICD-10-PCS; 2020-04-19)
DX: O34.211 Maternal care for low transverse scar from previous cesarean delivery (principal); F84.0 Autistic disorder; O99.344 Other mental disorders complicating childbirth; O69.81X0 Labor and delivery complicated by cord around neck, without compression, not applicable or unspecified; O99.52 Diseases of the respiratory system complicating childbirth; J45.909 Unspecified asthma, uncomplicated; R63.0 Anorexia; O99.334 Smoking (tobacco) complicating childbirth; F17.210 Nicotine dependence, cigarettes, uncomplicated; F31.9 Bipolar disorder, unspecified; Z37.0 Single live birth; Z3A.37 37 weeks gestation of pregnancy; Z23 Encounter for immunization
CPT/HCPCS: 1961; 36415; 80307; 81001; 85025; 85027; 86592; 86850; 86900; 86901; 90715; 94640; 94799; 99140; C1758; J0131; J0690; J1170; J1756; J1885; J2175; J2250; J2405; J2540; J2590; J3010; J3490; J7060; J7120

== ENCOUNTER 2020-07-12 21:27 | Emergency (ER) | payer MEDICAID | END 2020-07-12 23:15 | disposition left against medical advice (07) | LOC: ER 21:27 | DX: Z53.21 Procedure and treatment not carried out due to patient leaving prior to being seen by health care provider (principal) ==

== ENCOUNTER 2020-08-08 22:51 | Emergency (ER) | payer MEDICAID ==
[2020-08-08] MEDS ORDERED: LIDOCAINE 1%/EPINEPHRINE INJ 20 ML VIAL INJ ONE (23:15)
--- NOTE | 2020-08-08 23:26 | ER Document Report ---
ED General - General Chief Complaint: Skin Problem Stated Complaint: POSSIBLE WART BLEED Primary Care Provider: HUEY VARGHESE MD [Primary Care Provider] - Follow up as needed TRAVEL OUTSIDE OF THE [place] IN LAST 30 DAYS: No - HPI Notes: Chief Complaint: bleeding wound Historian: History obtained from patient HPI: This is a 20-year-old female presents to the ER complaining of a knee injury that caused a known wart continuously bleed. While walking he was struck against a small fence and her knee was scraped by a nail. The slightly tore open known wart on the lateral side of the right knee. Patient reports it bled for over 1 hour. She is concerned that its partially amputated and concerned that maybe her pets or her daughter will manipulate it and cause further bleeding or infection. She does have plans to follow-up with a cryotherapist to have it frozen and removed. Denies any other injuries tetanus up-to-date bleeding controlled at this time in the ED. ROS: Constitutional: no fevers. HEENT: no BUSCH, sore throat, or vision changes. CV: no chest pain or palpitations. Resp: no cough or SOB. GI: no abdominal pain, or n/v/d. : no dysuria, hematuria, or incont. MSK:right knee abrasion Skin: no rashes or itching. Neuro: no seizures, weakness, numbness, or confusion. Hematological: no ecchymosis or easy bleeding. Endocrine: no polyuria/polydipsia, no heat/cold intolerance. Psych: no SI/HI, AH/VH or memory loss. PMHx: Reviewed and agree as charted by RN. PSHx: Reviewed and agree as charted by RN. SOCHx: Reviewed and agree as charted by RN. FHX: No significant familial comorbid conditions directly related to patient complaint Current Medications: Reviewed and agree with the patient medications as charted by the RN. Allergies: Reviewed and agree with the listed allergies as charted by the RN Physical Exam: Vitals: Reviewed in chart as documented by RN. General: Alert and in NAD. Head: Normocephalic; atraumatic Eyes: PERRLA, Conjunctivae clear sclerae non-icteric bilat ENT: no soft palate swelling or uvular deviation Neck: trachea midline, no unilateral swelling/tenderness/lymphadenopathy CV: RRR, no M/R/G; symmetric distal pulses Resp: respirations even and unlabored, CTA bilat. GI: abd soft and nondistended. NTTP. normal BS. no masses/HSM. no CVAT bilat MSK: 1cm wart to lateral/superior knee, inferior laceration causing it to be partially amputated but still attached by 50%. clean appearing. no gross FB. FROM of hip, knee, ankle, toes. pedal pulse 2+. cap refill < 3 sec. sensory intact distally. Skin: warm, moist, good turgor. no rash/lesions Neuro: Alert and oriented X 4. following CN 2-12 intact. no unilateral weakness/numbness Psych: No SI/HI or AH/VH. ED Results: Medical Decision-Making: current plan is to clean/irrigate wound. excise remaining wart per pts request. sterile bandage and then d/c home. home care and return factors discussed. pcp f/u in 3 days for wound check. - Related Data Allergies/Adverse Reactions: No Known Allergies Allergy (Verified 04/16/20 17:57) Past Medical History - Social History Smoking Status: Current Every Day Smoker Family History: Reviewed & Not Pertinent Pulmonary Medical History: Reports: Hx Asthma Endocrine Medical History: Denies: Hx Diabetes Mellitus Type 1 Renal/ Medical History: Denies: Hx Peritoneal Dialysis Psychiatric Medical History: Reports: Hx Anxiety, Hx Attention Deficit Hyperactivity Disorder, Hx Bipolar Disorder, Hx Depression - Anxiety Past Surgical History: Reports: Hx Section - x1 - Immunizations Immunizations up to date: Yes Hx Diphtheria, Pertussis, Tetanus Vaccination: Yes Physical Exam - Vital signs Vitals: Temp Pulse Resp BP Pulse Ox 97.9 F 92 16 125/75 97 08/08/20 23:02 08/08/20 23:02 08/08/20 23:02 08/08/20 23:02 08/08/20 23:02 Course - Vital Signs Vital signs: Temp Pulse Resp BP Pulse Ox 97.9 F 92 16 125/75 97 08/08/20 23:02 08/08/20 23:02 08/08/20 23:02 08/08/20 23:02 08/08/20 23:02 Procedures - Incision and Drainage Right Lateral Knee Time completed: 23:30 Type: Simple Anesthetic type: 1% Lidocaine w/epi mL's of anesthetic: 2 Blade size: 11 I&D procedure: Betadine prep applied Incision Method: Incision made by scalpel Notes: 08/08/20 23:30 excised 1cm wart from right knee that was already partially amputated from injury before arrival. Wound was anesthetized with grid trimmer with epi. Excised with 11 blade. Mild bleeding. Use electrocautery to stop bleeding. Dermabond was used close the wound. Pt tolerated well. no complications 08/08/20 23:54 Discharge - Discharge Clinical Impression: Wart Qualifiers: Viral wart type: unspecified viral wart Qualified Code(s): B07.9 - Viral wart, unspecified Abrasion of knee, right Qualifiers: Encounter type: initial encounter Qualified Code(s): S80.211A - Abrasion, right knee, initial encounter Condition: Stable Disposition: HOME, SELF-CARE Instructions: Warts ([facility]) Referrals: HUEY VARGHESE MD [Primary Care Provider] - Follow up as needed
[2020-08-09 00:08] VITALS: BP 112/76
== END 2020-08-09 00:25 | disposition home or self-care (01) ==
LOC: ER 22:51
DX: S80.211A Abrasion, right knee, initial encounter (principal); B07.9 Viral wart, unspecified; W22.8XXA Striking against or struck by other objects, initial encounter; F17.200 Nicotine dependence, unspecified, uncomplicated; J45.909 Unspecified asthma, uncomplicated
CPT/HCPCS: 99282; 11401; J3490